=== PATIENT | female | born 1990 | race Caucasian/White ===

== ENCOUNTER 2018-11-15 00:22 | Emergency (ER) | payer OTHER ==
[2018-11-15] MEDS ORDERED: AZITHROMYCIN 250 MG TABLET PO ONE (00:31)
[2018-11-15] MEDS ORDERED: AZITHROMYCIN 250 MG TABLET ONE (00:34)
--- NOTE | 2018-11-15 00:37 | PDOC ---
History of Present Illness - General History Source: Patient Exam Limitations: No Limitations - History of Present Illness Initial Comments: 11/15/18 01:04 28 year old female with past medical history of asthma, cigarette smoker, presents to the ED with complaints of cold symptoms x5 days. Patient reports experiencing chills, sweats, subjective fever, and a productive cough with brown sputum. States her was sick with same symptoms. Denies any nausea , vomiting, diarrhea, urinary symptoms. <Mandi Arias - Last Filed: 11/15/18 01:04> <Deepa Villalpando - Last Filed: 11/15/18 05:38> - General Stated Complaint: COUGH,CHILLS Time Seen by Provider: 11/15/18 00:31 Past History <Mandi Arias - Last Filed: 11/15/18 01:04> - Past Medical History HTN: Yes Hypercholesterolemia: Yes - Suicide/Smoking/Psychosocial Hx Smoking Status: Yes Smoking History: Current every day smoker Have you smoked in the past 12 months: Yes Number of Cigarettes Smoked Daily: 12 'Breaking Loose' booklet given: 07/18/15 Hx Alcohol Use: No Drug/Substance Use Hx: No Substance Use Type: None <Deepa Villalpando - Last Filed: 11/15/18 05:38> - Past Medical History Allergies/Adverse Reactions: Allergies Allergy/AdvReac Type Severity Reaction Status Date / Time vancomycin Allergy Intermediate Hives Verified 11/15/18 00:38 Home Medications: Ambulatory Orders Acetaminophen [Tylenol] 650 mg PO PRN 11/15/18 Azithromycin [Zithromax -] 250 mg PO UTDICT #4 tab 11/15/18 Review of Systems - Review of Systems Able to Perform ROS?: Yes Comments:: 11/15/18 01:05 GENERAL/CONSTITUTIONAL: (+)Fever, chills. No weakness. HEAD, EYES, EARS, NOSE AND THROAT: No change in vision. No ear pain or discharge. No sore throat. CARDIOVASCULAR: No chest pain or shortness of breath. RESPIRATORY: (+) Productive cough. No wheezing, or hemoptysis. GASTROINTESTINAL: No nausea, vomiting, diarrhea or constipation. GENITOURINARY: No dysuria, frequency, or change in urination. MUSCULOSKELETAL: No joint or muscle swelling or pain. No neck or back pain. SKIN: No rash NEUROLOGIC: No headache, vertigo, loss of consciousness, or change in strength/ sensation. ENDOCRINE: No increased thirst. No abnormal weight change. HEMATOLOGIC/LYMPHATIC: No anemia, easy bleeding, or history of blood clots. ALLERGIC/IMMUNOLOGIC: No hives or skin allergy. All Other Systems: Reviewed and Negative <Mandi Arias - Last Filed: 11/15/18 01:04> *Physical Exam - Vital Signs Last Vital Signs Temp Pulse Resp BP Pulse Ox 97.6 F 89 18 142/79 99 11/15/18 00:38 11/15/18 00:38 11/15/18 00:38 11/15/18 00:38 11/15/18 00:38 - Physical Exam Comments: 11/15/18 01:08 GENERAL: Awake, alert, and fully oriented, in no acute distress. Afebrile EYES: PERRLA, EOMI, sclera anicteric, conjunctiva clear ENT: Auricles normal inspection, hearing grossly normal, nares patent, oropharynx clear without exudates. Moist mucosa NECK: Normal ROM, supple, no lymphadenopathy, JVD, or masses LUNGS: Breath sounds equal, clear to auscultation bilaterally. No wheezes, and no crackles HEART: Regular rate and rhythm, normal S1 and S2, no murmurs, rubs or gallops ABDOMEN: Soft, nontender, normoactive bowel sounds. No guarding, no rebound. No masses EXTREMITIES: Normal range of motion, no edema. No clubbing or cyanosis. No cords, erythema, or tenderness NEUROLOGICAL: Cranial nerves II through XII grossly intact. Normal speech, normal gait SKIN: Warm, Dry, normal turgor, no rashes or lesions noted. <Mandi Arias - Last Filed: 11/15/18 01:04> Moderate Sedation - Procedure Monitoring Vital Signs: Procedure Monitoring Vital Signs Temperature 97.6 F 11/15/18 00:38 Pulse Rate 89 11/15/18 00:38 Respiratory Rate 18 11/15/18 00:38 Blood Pressure 142/79 11/15/18 00:38 O2 Sat by Pulse Oximetry (%) 99 11/15/18 00:38 <Mandi Arias - Last Filed: 11/15/18 01:04> ED Treatment Course - Medications Given in the ED: ED Medications Discontinued Medications Generic Name Dose Route Start Last Admin Trade Name Freelsy PRN Reason Stop Dose Admin Azithromycin 500 mg 11/15/18 00:31 11/15/18 00:37 Zithromax - PO 11/15/18 00:32 500 mg ONCE ONE Administration <Mandi Arias - Last Filed: 11/15/18 01:04> - Medications Given in the ED: ED Medications Discontinued Medications Generic Name Dose Route Start Last Admin Trade Name Freq PRN Reason Stop Dose Admin Azithromycin 500 mg 11/15/18 00:31 11/15/18 00:37 Zithromax - PO 11/15/18 00:32 500 mg ONCE ONE Administration <Deepa Villalpando - Last Filed: 11/15/18 05:38> Medical Decision Making - Medical Decision Making 11/15/18 05:38 Pt caught a cold from her . She has been coughing x 10 days. She is a smoker. She will be treated with zpak for an atypical pneumonia. Follow with PMD. <Deepa Villalpando - Last Filed: 11/15/18 05:38> *DC/Admit/Observation/Transfer - Attestations Scribe Attestion: 11/15/18 01:08 Documentation prepared by Mandi Arias, acting as medical doctor for Deepa Villalpando MD. <Mandi Arias - Last Filed: 11/15/18 01:04> - Discharge Dispostion Decision to Admit order: No <Deepa Villalpando - Last Filed: 11/15/18 05:38> Diagnosis at time of Disposition: Upper respiratory infection, Atypical pneumonia - Discharge Dispostion Disposition: HOME Condition at time of disposition: Stable - Prescriptions Prescriptions: Azithromycin [Zithromax -] 250 mg PO UTDICT #4 tab - Patient Instructions Printed Discharge Instructions: DI for Atypical Pneumonia
[2018-11-15 00:40] VITALS: BP 142/79; PULSE 89; TEMP 97.6; BMI 36.6
== END 2018-11-15 01:22 | disposition home or self-care (01) ==
LOC: JER 00:22
DX: J18.9 Pneumonia, unspecified organism (principal)
CPT/HCPCS: 71046-TC-FY; 99281-25

== ENCOUNTER 2019-01-09 20:42 | Emergency (ER) | payer OTHER ==
[2019-01-09 20:45] VITALS: BMI 39.4
--- NOTE | 2019-01-09 21:31 | PDOC ---
Attending Attestation - HPI HPI: 01/10/19 00:14 The patient is a 28 year old female, with a significant PMH of tobacco abuse and COPD, who presents to the emergency department complaining of chest pain that began tonight at 8pm. The patient states the sharp stabbing pain is located to left anterior chest wall that radiates to the left neck. She also endorses associated symptoms of left arm weakness, cough and tingling sensation to the left leg. She mentions she has an appointment with [facility] 01/22/2019. The patient denies chest pain, shortness of breath, headache and dizziness.Denies fever, chills, nausea, vomit, diarrhea and constipation.Denies dysuria, frequency, urgency and hematuria. Allergies: vancomycin Past surgical history: None reported Social history: None reported PCP: None reported Documentation prepared by Fuentes Serna, acting as medical device sales representative for Katherine Reyes MD. - Physicial Exam PE: 01/10/19 00:23 GENERAL: Awake, alert, and fully oriented, in no acute distress HEAD: No signs of trauma LUNGS: Breath sounds equal, clear to auscultation bilaterally. No wheezes, and no crackles HEART: Regular rate and rhythm, normal S1 and S2, no murmurs, rubs or gallops ABDOMEN: Soft, nontender, normoactive bowel sounds. No guarding, no rebound. No masses EXTREMITIES: Normal range of motion, no edema. No clubbing or cyanosis. No cords, erythema, or tenderness NEUROLOGICAL: Cranial nerves II through XII grossly intact. Normal speech, normal gait SKIN: Warm, Dry, normal turgor, no rashes or lesions noted. Documentation prepared by Fuentes Serna, acting as medical device sales representative for Katherine Reyes MD. <Fuentes Serna - Last Filed: 01/10/19 00:14> - Resident Resident Name: Irving Bell - Medical Decision Making 01/10/19 20:23 Pt presents to the ED complaining of atypical CP. Pain is sharp, stabbing, non radiating. Normal exam. Patient is low risk for cardiac disease with heart score of 1. D dimer is negative. Tachycardia resolved. Patient reports that she was feeling extremely anxious on ED arrival and feels better now. Has appt for outpatient stress with Dr. Quinn on 01/22. Will discharge home with follow up with PMD and Dr. Quinn. 01/10/19 20:24 <Katherine Reyes - Last Filed: 01/10/19 20:25>
[2019-01-09] MEDS ORDERED: SODIUM CHLORIDE 1,000 ML IV STA (21:45)
[2019-01-09] MEDS ORDERED: ACETAMINOPHEN 1000 MG/100 ML VIAL (NON FORMULARY) IVPB ONE (21:45)
--- NOTE | 2019-01-09 21:53 | PDOC ---
History of Present Illness - General Chief Complaint: Chest Pain Stated Complaint: CHEST PAIN Time Seen by Provider: 01/09/19 21:31 History Source: Patient Exam Limitations: No Limitations - History of Present Illness Initial Comments: 01/09/19 21:47 Patient is 28F with history of COPD and tobacco abuse here today complaining of chest pain that onset at about 8pm tonight. Endorses associated cough for the past several weeks. Denies fevers, chills, nausea, vomiting. Endorses weakness in her left arm and tingling sensation in her left arm and left leg. Patient describes the pain as a crushing pain. Denies vision changes and facial droop. Denies headache. Denies leg swelling, recent travel, history of PE. Patient states that she is concerned because her 59 year old fiance was recently diagnosed with a MT. Past History - Past Medical History Allergies/Adverse Reactions: Allergies Allergy/AdvReac Type Severity Reaction Status Date / Time vancomycin Allergy Intermediate Hives Verified 01/09/19 20:45 COPD: Yes HTN: Yes Hypercholesterolemia: Yes - Immunization History Immunization Up to Date: Yes - Suicide/Smoking/Psychosocial Hx Smoking Status: Yes Smoking History: Current every day smoker Have you smoked in the past 12 months: Yes Number of Cigarettes Smoked Daily: 20 Information on smoking cessation initiated: Yes 'Breaking Loose' booklet given: 07/18/15 Hx Alcohol Use: No Drug/Substance Use Hx: No Substance Use Type: None Review of Systems - Review of Systems Able to Perform ROS?: Yes Comments:: 01/09/19 21:53 GENERAL/CONSTITUTIONAL: No fever or chills. No weakness. HEAD, EYES, EARS, NOSE AND THROAT: No change in vision. No sore throat. CARDIOVASCULAR: +chest pain +shortness of breath RESPIRATORY: No cough, wheezing, or hemoptysis. GASTROINTESTINAL: No nausea, vomiting, diarrhea or constipation. GENITOURINARY: No dysuria, frequency, or change in urination. MUSCULOSKELETAL: No joint or muscle swelling or pain. No neck or back pain. SKIN: No rash NEUROLOGIC: No headache, vertigo, loss of consciousness, or +tingling in l arm/ leg. ENDOCRINE: No increased thirst. No abnormal weight change HEMATOLOGIC/LYMPHATIC: No anemia, easy bleeding, or history of blood clots. ALLERGIC/IMMUNOLOGIC: No hives or skin allergy. *Physical Exam - Vital Signs Last Vital Signs Temp Pulse Resp BP Pulse Ox 97.8 F 104 H 18 154/86 98 01/09/19 20:43 01/09/19 20:43 01/09/19 20:43 01/09/19 20:43 01/09/19 20:43 - Physical Exam Comments: 01/09/19 21:54 GENERAL: Awake, alert, and fully oriented, in no acute distress HEAD: No signs of trauma, normocephalic, atraumatic EYES: PERRLA, EOMI, sclera anicteric, conjunctiva clear ENT: Auricles normal inspection, hearing grossly normal, nares patent, oropharynx clear without exudates. Moist mucosa NECK: Normal ROM, supple, no lymphadenopathy, JVD, or masses LUNGS: No distress, speaks full sentences, clear to auscultation bilaterally HEART: Regular rate and rhythm, normal S1 and S2, no murmurs, rubs or gallops, peripheral pulses normal and equal bilaterally. ABDOMEN: Soft, nontender, normoactive bowel sounds. No guarding, no rebound. No masses EXTREMITIES: Normal inspection, Normal range of motion, no edema. No clubbing or cyanosis. NEUROLOGICAL: Cranial nerves II through XII grossly intact. Normal speech, normal gait, no focal sensorimotor deficits SKIN: Warm, Dry, normal turgor, no rashes or lesions noted. Moderate Sedation - Procedure Monitoring Vital Signs: Procedure Monitoring Vital Signs Temperature 97.8 F 01/09/19 20:43 Pulse Rate 104 H 01/09/19 20:43 Respiratory Rate 18 01/09/19 20:43 Blood Pressure 154/86 01/09/19 20:43 O2 Sat by Pulse Oximetry (%) 98 01/09/19 20:43 ED Treatment Course - LABORATORY CBC & Chemistry Diagram: 01/09/19 22:15 01/09/19 22:15 - RADIOLOGY Radiology Studies Ordered: Category Date Time Status CHEST X-RAY PORTABLE* [RAD] Stat Radiology 01/09/19 21:39 Ordered Medical Decision Making - Medical Decision Making 01/09/19 21:54 Patient is 28F with history of copd and tobacco abuse here today with chest pain. Vitals notable for tachycardia. Believe patient is low risk for PE. Dissection considered, but pain not severe and patient has no fmh or risk factors for dissection. Will do cardiac workup with d-dimer. 01/10/19 00:07 CBC, CMP reassuring. Trop neg. D-dimer negative. CXR clear, no widened mediastinum. Patient has cardiology follow up already scheduled with Dr Quinn. Chest pain atypical, HEART score 1. EKG shows nsr, no st elevations/depressions. Normal axis. Normal intervals. No significant t wave abnormalities. *DC/Admit/Observation/Transfer Diagnosis at time of Disposition: Chest pain - Discharge Dispostion Disposition: HOME Condition at time of disposition: Good Decision to Admit order: No - Referrals Referrals: Candice De Oliveira MD [Primary Care Provider] - - Patient Instructions Printed Discharge Instructions: DI for Atypical Chest Pain Additional Instructions: Please follow up with your chip tuner as scheduled. Please return if you have any new, worsening or concerning symptoms, especially increasing pain, shortness of breath and fever. - Post Discharge Activity
[2019-01-09] MEDS ORDERED: ACETAMINOPHEN INJECTION 100 ML IVPB ONE (21:54)
[2019-01-09 22:29] LABS: BASO % 0.7 % (0-2.0); EOS % 0.9 % (0-4.5); HEMATOCRIT 41.8 % (32.4-45.2); HEMOGLOBIN 14.8 GM/dL (10.7-15.3); LYMPH % 21.3 % (8-40); MCH 30.4 pg (25.7-33.7); MCHC 35.3 g/dl (32.0-36.0); MEAN CELL VOLUME 86.1 fl (80-96); MEAN PLT VOLUME 8.5 fl (7.5-11.1); MONO % 4.9 % (3.8-10.2); NEUT % 72.2 % (42.8-82.8); PLATELET COUNT 241 K/MM3 (134-434); RBC 4.86 M/mm3 (3.60-5.2); RDW 13.3 % (11.6-15.6); WHITE BLOOD COUNT 11.5 K/mm3 (4.0-10.0)
[2019-01-09 22:49] LABS: INR 1.12 (0.83-1.09); PROTHROMBIN TIME (PATIENT) 13.2 SEC (9.7-13.0)
[2019-01-09 23:36] LABS: ALK PHOS 110 U/L (45-117); ANION GAP 8 MMOL/L (8-16); BILIRUBIN,DIRECT 0.1 mg/dL (0.0-0.2); BILIRUBIN,TOTAL 0.3 mg/dL (0.2-1); BLOOD UREA NITROGEN 11 mg/dL (7-18); CALCIUM 8.9 mg/dL (8.5-10.1); CHLORIDE 106 mmol/L (98-107); CO2 25 mmol/L (21-32); CREATININE 0.7 mg/dL (0.55-1.3); GLUCOSE,RANDOM 91 mg/dL (74-106); MAGNESIUM 2.2 mg/dL (1.8-2.4); POTASSIUM 3.6 mmol/L (3.5-5.1); SGOT/AST 20 U/L (15-37); SGPT/ALT 25 U/L (13-61); SODIUM 140 mmol/L (136-145); TOT PROT 8.1 g/dl (6.4-8.2)
[2019-01-10] MEDS ORDERED: KETOROLAC TROMETHAMINE 30 MG/1 ML VIAL IVPUSH ONE (00:03)
[2019-01-10] MEDS ORDERED: KETOROLAC TROMETHAMINE 30 MG/1 ML VIAL ONE (00:25)
[2019-01-10 00:43] VITALS: BP 113/90; PULSE 67; TEMP 97
--- NOTE | 2019-01-11 10:42 | EKG ---
Test Reason : Blood Pressure : / mmHG Vent. Rate : 093 BPM Atrial Rate : 093 BPM P-R Int : 136 ms QRS Dur : 086 ms QT Int : 376 ms P-R-T Axes : 027 002 017 degrees QTc Int : 467 ms NORMAL SINUS RHYTHM WITH SINUS ARRHYTHMIA NORMAL ECG WHEN COMPARED WITH ECG OF 27-NOV-2011 11:43, NO SIGNIFICANT CHANGE WAS FOUND Confirmed by LAMAR SAENZ MD ([id number]) on 01/11/2019 10:42:20 AM Referred By: Confirmed By:LAMAR SAENZ MD
== END 2019-01-10 00:44 | disposition home or self-care (01) ==
LOC: JER 20:42
PROC: 3E033NZ Introduction of Analgesics, Hypnotics, Sedatives into Peripheral Vein, Percutaneous Approach (ICD-10-PCS; principal; 2019-01-09)
PROC: 3E0333Z Introduction of Anti-inflammatory into Peripheral Vein, Percutaneous Approach (ICD-10-PCS; 2019-01-09)
DX: R07.89 Other chest pain (principal); J44.9 Chronic obstructive pulmonary disease, unspecified; F17.210 Nicotine dependence, cigarettes, uncomplicated
CPT/HCPCS: 36415; 71045-TC-FY; 80053; 82248; 82550; 83735; 84484; 84703; 85025; 85379; 85610; 93005; 93010; 99282-25; J0131; J7030

== ENCOUNTER 2019-11-22 17:50 | Emergency (ER) | payer OTHER ==
--- NOTE | 2019-11-22 17:57 | PDOC ---
Rapid Medical Evaluation Time Seen by Provider: 11/22/19 17:55 Medical Evaluation: Allergies Allergy/AdvReac Type Severity Reaction Status Date / Time vancomycin Allergy Intermediate Hives Verified 11/22/19 17:55 11/22/19 17:56 I performed a brief in-person evaluation of this patient. 29-year-old female with 3 days of right flank pain. Reports chills at night. Nausea without vomiting. Pertinent physical exam findings: Right flank tenderness, tender over bladder Afebrile I have ordered the following: UA, culture, urine Patient to proceed to the ED for further evaluation. Discharge Disposition - Diagnosis Flank pain - Referrals - Patient Instructions - Post Discharge Activity
[2019-11-22 17:58] VITALS: BMI 39.4
[2019-11-22 18:44] LABS: EPI CELLS 1.8 /HPF (0-5/HPF); HYALINE CASTS 6 /lpf (0-8); URINE APPEARANCE CLEAR; URINE BACTERIA 9.1 /hpf (NEGATIVE); URINE BILIRUBIN NEGATIVE (NEGATIVE); URINE COLOR YELLOW; URINE GLUCOSE (UA) NEGATIVE (NEGATIVE); URINE KETONE NEGATIVE (NEGATIVE); URINE LEUK ESTERASE NEGATIVE (NEGATIVE); URINE NITRITE NEGATIVE (NEGATIVE); URINE PROTEIN NEGATIVE (NEGATIVE); URINE RBC 5 /hpf (0-4); URINE WBC 5 /hpf (0-5)
--- NOTE | 2019-11-22 19:26 | PDOC ---
History of Present Illness - General Chief Complaint: Pain, Acute Stated Complaint: R/SIDE/PAIN/ABD/PAIN/NAUSEA Time Seen by Provider: 11/22/19 17:55 History Source: Patient - History of Present Illness Initial Comments: 11/22/19 19:32 29 year old female old c/o RUQ pain radiating to radiating to the right flank. + chills. + urinary frequency. denies dysuria, denies flank pain now. patient reports that andrew symptoms has been going on for 3 weeks worsening overtime. pain is worse after eating. NO PMHX \ NO PSHX LMP: 11/2019 Past History - Past Medical History Allergies/Adverse Reactions: Allergies Allergy/AdvReac Type Severity Reaction Status Date / Time vancomycin Allergy Intermediate Hives Verified 11/22/19 17:55 Home Medications: Ambulatory Orders NK [No Known Home Medication] 11/22/19 COPD: Yes HTN: Yes Hypercholesterolemia: Yes - Immunization History Immunization Up to Date: Yes - Psycho Social/Smoking Cessation Hx Smoking Status: Yes Smoking History: Current every day smoker Have you smoked in the past 12 months: Yes Number of Cigarettes Smoked Daily: 20 Information on smoking cessation initiated: No 'Breaking Loose' booklet given: 07/18/15 Hx Alcohol Use: No Drug/Substance Use Hx: No Substance Use Type: None Review of Systems - Review of Systems Able to Perform ROS?: Yes Is the patient limited Polish proficient: No Constitutional: Yes: Chills. No: Symptoms Reported, See HPI, Diaphoresis, Fever , Loss of Appetite, Malaise, Night Sweats, Weakness, Weight Stable, Unintentional Wgt. Loss, Unexplained wgt Loss, Other ABD/GI: Yes: Nausea, Abdominal cramping Musculoskeletal: Yes: Back Pain *Physical Exam - Vital Signs Last Vital Signs Temp Pulse Resp BP Pulse Ox 97.9 F 95 H 18 135/76 100 11/22/19 17:55 11/22/19 17:55 11/22/19 17:55 11/22/19 17:55 11/22/19 17:55 - Physical Exam General Appearance: Yes: Appropriately Dressed Respiratory/Chest: positive: Lungs Clear, Normal Breath Sounds Cardiovascular: positive: Regular Rhythm, Regular Rate Gastrointestinal/Abdominal: positive: Normal Bowel Sounds, Tender (RUQ), Soft Musculoskeletal: negative: CVA Tenderness Extremity: positive: Normal Capillary Refill, Normal Inspection, Normal Range of Motion Integumentary: positive: Normal Color, Dry, Warm Neurologic: positive: Fully Oriented, Alert, Normal Mood/Affect ED Treatment Course - LABORATORY CBC & Chemistry Diagram: 11/22/19 19:54 11/22/19 19:54 - ADDITIONAL ORDERS Additional order review: Laboratory Results 11/22/19 11/22/19 18:04 18:04 Urine Color Yellow Urine Appearance Clear Urine pH 6.0 Ur Specific [place] 1.022 Urine Protein Negative Urine Glucose (UA) Negative Urine Ketones Negative Urine Blood 1+ H Urine Nitrite Negative Urine Bilirubin Negative Urine Urobilinogen 1.0 Ur Leukocyte Esterase Negative Urine WBC (Auto) 5 Urine RBC (Auto) 5 Urine Casts (Auto) 6 U Epithel Cells (Auto) 1.8 Urine Bacteria (Auto) 9.1 Urine HCG, Qual Negative ED Progress Note - Progress Note Progress Note: 11/22/19 19:35 A: Upper abdominal pain P: CBC CMP Lipase Ultrasouns UA Urine pregn Discharge - Discharge Information Problems reviewed: Yes Clinical Impression/Diagnosis: Upper abdominal pain Cholelithiasis Qualifiers: Cholelithiasis location: gallbladder Cholecystitis presence: without cholecystitis Biliary obstruction: without biliary obstruction Qualified Code(s) : K80.20 - Calculus of gallbladder without cholecystitis without obstruction Disposition: HOME - Follow up/Referral Referrals: Juan Case MD [Staff Physician] - Call tomorrow [place] [Staff Physician] - Call tomorrow Cyrus Jackson MD [Staff Physician] - Call tomorrow - Patient Discharge Instructions Patient Printed Discharge Instructions: Gallstones Additional Instructions: start a low fat diet. it is very important that you follow up with a surgeon/ GI doctor as soon as impossible. return to the ER for any worsening symptoms - Post Discharge Activity
--- NOTE | 2019-11-22 19:34 | PDOC ---
*Physical Exam - Vital Signs Last Vital Signs Temp Pulse Resp BP Pulse Ox 97.9 F 95 H 18 135/76 100 11/22/19 17:55 11/22/19 17:55 11/22/19 17:55 11/22/19 17:55 11/22/19 17:55 ED Treatment Course - LABORATORY CBC & Chemistry Diagram: 11/22/19 19:54 11/22/19 19:54 - ADDITIONAL ORDERS Additional order review: Laboratory Results 11/22/19 11/22/19 18:04 18:04 Urine Color Yellow Urine Appearance Clear Urine pH 6.0 Ur Specific [place] 1.022 Urine Protein Negative Urine Glucose (UA) Negative Urine Ketones Negative Urine Blood 1+ H Urine Nitrite Negative Urine Bilirubin Negative Urine Urobilinogen 1.0 Ur Leukocyte Esterase Negative Urine WBC (Auto) 5 Urine RBC (Auto) 5 Urine Casts (Auto) 6 U Epithel Cells (Auto) 1.8 Urine Bacteria (Auto) 9.1 Urine HCG, Qual Negative Medical Decision Making - Medical Decision Making 11/22/19 19:33 Patient seen by the advanced practice provider under my direct supervision. Ancillary testing reviewed as necessary. I agree with plan as outlined by the advanced practice provider. Discharge - Discharge Information Problems reviewed: Yes Clinical Impression/Diagnosis: Upper abdominal pain Cholelithiasis Qualifiers: Cholelithiasis location: gallbladder Cholecystitis presence: without cholecystitis Biliary obstruction: without biliary obstruction Qualified Code(s) : K80.20 - Calculus of gallbladder without cholecystitis without obstruction Disposition: HOME - Follow up/Referral Referrals: Juan Case MD [Staff Physician] - Call tomorrow Cyrus Jackson MD [Staff Physician] - Call tomorrow [place] [Staff Physician] - Call tomorrow - Patient Discharge Instructions Patient Printed Discharge Instructions: Gallstones Additional Instructions: start a low fat diet. it is very important that you follow up with a surgeon/ GI doctor as soon as impossible. return to the ER for any worsening symptoms - Post Discharge Activity
[2019-11-22 21:02] LABS: BASO % 0.4 % (0-2.0); EOS % 1.5 % (0-4.5); HEMATOCRIT 41.4 % (32.4-45.2); HEMOGLOBIN 14.3 GM/dL (10.7-15.3); LYMPH % 20.4 % (8-40); MCH 28.9 pg (25.7-33.7); MCHC 34.5 g/dl (32.0-36.0); MEAN CELL VOLUME 83.8 fl (80-96); MEAN PLT VOLUME 8.9 fl (7.5-11.1); MONO % 5.2 % (3.8-10.2); NEUT % 72.5 % (42.8-82.8); PLATELET COUNT 295 K/MM3 (134-434); RBC 4.95 M/mm3 (3.60-5.2); RDW 13.8 % (11.6-15.6); WHITE BLOOD COUNT 10.9 K/mm3 (4.0-10.0)
[2019-11-22 21:31] LABS: ALBUMIN 3.9 g/dl (3.4-5.0); BILIRUBIN,TOTAL 0.3 mg/dL (0.2-1); BLOOD UREA NITROGEN 8.4 mg/dL (7-18); CALCIUM 8.7 mg/dL (8.5-10.1); CREATININE 0.7 mg/dL (0.55-1.3); POTASSIUM 4.1 mmol/L (3.5-5.1); TOT PROT 7.8 g/dl (6.4-8.2)
[2019-11-22 22:04] VITALS: BP 124/76; PULSE 82; TEMP 97.5
== END 2019-11-22 22:04 | disposition home or self-care (01) ==
LOC: JER 17:50
DX: K80.20 Calculus of gallbladder without cholecystitis without obstruction (principal); I10 Essential (primary) hypertension; E78.00 Pure hypercholesterolemia, unspecified; J44.9 Chronic obstructive pulmonary disease, unspecified; F17.210 Nicotine dependence, cigarettes, uncomplicated; Z88.1 Allergy status to other antibiotic agents
CPT/HCPCS: 36415; 76705-TC; 80053; 81003; 83690; 84703; 85025; 87086; 99283-25

== ENCOUNTER 2019-11-26 09:51 | Day surgery (SDC) | payer OTHER ==
[2019-11-25 09:07] VITALS: BMI 39.4
--- NOTE | 2019-11-26 12:03 | HP ---
History & Physical Update - History History: No Change - Physical Physical: No Change - Assessment Assessment: No Change - Plan Plan: No Change (for lap alondra possible open; r/b/t/a's d/w the patient and informed consent obtained.)
[2019-11-26] MEDS ORDERED: PROPOFOL 20 ML ONE ×2 (12:45)
[2019-11-26] MEDS ORDERED: MIDAZOLAM HCL 2 MG/2 ML SINGLE DOSE VIAL ONE (12:45)
[2019-11-26] MEDS ORDERED: SUCCINYLCHOLINE CHLORIDE 200 MG/10 ML SYRINGE ONE (12:45)
[2019-11-26] MEDS ORDERED: fentaNYL CITRATE 250 MCG/5 ML VIAL ONE (12:45)
[2019-11-26] MEDS ORDERED: EPHEDRINE SULFATE/0.9% NACL/PF 50 MG/10 ML SYRINGE NR ONE (12:46)
[2019-11-26] MEDS ORDERED: LIDOCAINE HCL/PF 2% SDV 5ML VIAL ONE (12:46)
[2019-11-26] MEDS ORDERED: ceFAZolin SODIUM 1 GM VIAL IVPB ONE (13:15)
[2019-11-26] MEDS ORDERED: BUPIVACAINE HCL/PF 0.5% (5MG/ML) 10 ML VIAL IJ ONE ×2 (14:04)
[2019-11-26] MEDS ORDERED: NEOSTIGMINE METHYLSULFATE 0.5 MG/ML - 10 ML MDV ONE (14:18)
[2019-11-26] MEDS ORDERED: GLYCOPYRROLATE 0.2 MG/1 ML VIAL ONE ×2 (14:19)
[2019-11-26] MEDS ORDERED: KETOROLAC TROMETHAMINE 30 MG/1 ML VIAL ONE (14:19)
[2019-11-26] MEDS ORDERED: DEXAMETHASONE SOD PHOSPHATE 4 MG/1 ML VIAL ONE (14:22)
--- NOTE | 2019-11-26 14:53 | OP ---
Operative Note - Note: Operative Date: 11/26/19 Pre-Operative Diagnosis: gallstones Operation: laparscopic cholecyctectomy Surgeon: Juan Case [employer] Security Chief: Jyoti Doe Anesthesiologist/RETAIL WAREHOUSE ASSOCIATE: Devora Miller Anesthesia: General Estimated Blood Loss (mls): 20 Fluid Volume Replaced (mls): 1,000 Operative Report Dictated: Yes
--- NOTE | 2019-11-26 14:55 | SURG ---
Surgery Menu Planner Note Menu Planner: Jyoti Doe PA-C Date of Service: 11/26/19 Diagnosis: gallstones Procedure: laparscopic cholecyctectomy I was present for the entirety of the operative procedure. For further detail, please refer to operative report. Visit type - Case Type Case Type: Scheduled - Emergency Emergency Visit: No - New patient This patient is new to me today: Yes Date on this admission: 11/26/19
[2019-11-26] MEDS ORDERED: ONDANSETRON 4 MG/2 ML VIAL ONE (14:58)
[2019-11-26] MEDS ORDERED: ONDANSETRON 4 MG/2 ML VIAL IVPUSH PRN (15:00)
[2019-11-26] MEDS ORDERED: oxyCODONE HCL 5 MG TABLET PO PRN ×2 (15:00)
[2019-11-26] MEDS ORDERED: LACTATED RINGERS SOLUTION 1,000 ML IV SCH (15:00)
[2019-11-26 17:01] VITALS: TEMP 98
[2019-11-26 17:51] VITALS: BP 123/85; PULSE 73
--- NOTE | 2019-11-30 13:40 | OP ---
DATE OF OPERATION: 11/26/2019 PREOPERATIVE DIAGNOSIS: Chronic cholecystitis and cholelithiasis. POSTOPERATIVE DIAGNOSIS: Chronic cholecystitis and cholelithiasis. PROCEDURE: Laparoscopic cholecystectomy. SURGEON: Juan Case MD AGRICULTURAL SERVICES DIRECTOR: ALBAN Thurston ANESTHESIA: General. OPERATIVE FINDINGS: There was chronic cholecystitis and cholelithiasis. The rest of the findings were unremarkable. DESCRIPTION OF PROCEDURE: The patient was placed on the operating room table in supine position. After the induction of general anesthesia, the patient's abdomen was prepped with ChloraPrep and draped in sterile fashion. Time-out was taken and then pneumoperitoneum established above the umbilicus using a Veress needle. Once 15 mm of intra-abdominal pressure was obtained, a 5-mm port was placed at the umbilicus. Additional lateral 5-mm ports and a subxiphoid 12-mm port were placed and laparoscopy carried out, and the previously noted findings were observed. The gallbladder was placed on cephalad and lateral traction, and dissection was begun at the neck of the gallbladder where the peritoneum was opened medially and laterally using blunt and sharp dissection and electrocautery. Dissection continued in the triangle of Calot where the cystic duct was identified coursing from the neck of the gallbladder distally to the common bile duct. It was dissected proximally and distally for length. Similarly, the artery was similarly identified and dissected. A critical view of safety was taken, and then the cystic duct divided proximally and distally using Endo Kathe after it was clipped twice proximally and distally with large hemoclips. The artery was similarly clipped and divided. Hemostasis was checked for and noted to be good and then the gallbladder was removed from the liver bed in a retrograde fashion using electrocautery. Prior to removal from the edge of the liver, hemostasis was again verified and then the gallbladder removed from the edge of the liver, placed in an EndoCatch, and brought out through the subxiphoid port. Pneumoperitoneum was reestablished, hemostasis verified again, and then the 5-mm lateral and subxiphoid ports were removed under laparoscopic vision without evidence of bleeding from the port sites. The umbilical port was removed and the pneumoperitoneum evacuated. All port sites were infiltrated with 0.5% Marcaine and the skin edges closed with 4-0 Biosyn in a subcuticular and continuous fashion. Steri-Strips and Band-Aid dressings were placed and the procedure terminated at this point and the patient aroused from general anesthesia and transferred to the post anesthesia care unit in stable condition awake and alert. ESTIMATED BLOOD LOSS: 20 mL. REPLACEMENTS: Crystalloid. DRAINS: None. SPECIMENS: Gallbladder and contents to Pathology. I, Juan Dumont, was physically present in the operating room from the time the patient was placed on the operating room table until she was transferred to the post anesthesia care unit in [employer]. MD GREGORIO Renia/[id number] MTDD
--- NOTE | 2019-12-01 19:35 | PATH ---
Surgical Pathology Report Patient Name: DEION HUGHES [facility]. Rec. #: [id number] /Age/Gender: 1990 (Age: 29) / F Account: [id number] Location: [facility] SURGICAL Taken: 11/26/2019 Received: 11/29/2019 Reported: 12/01/2019 Physicians: Juan Case MD Specimen(s) Received GALLBLADDER Clinical History Cholelithiasis Final Diagnosis GALLBLADDER, CHOLECYSTECTOMY: MILD ACUTE SUPERIMPOSED ON CHRONIC CHOLECYSTITIS. CHOLELITHIASIS. Electronically Signed Rosa Elena Fernandez M.D. Gross Description Received in formalin, labeled "gallbladder," is a 6.5 x 2.3 x 2.3 cm. gallbladder with a 0.2 cm. in length portion of cystic duct attached. The outer surface varies from smooth to shaggy. Focal defect measuring 0.5 cm in greatest dimension noted. The lumen contains with multiple stones, the largest measures 1.6 cm in greatest dimension. The mucosa is focally superficial eroded. The wall of the gallbladder measures 0.3cm. in thickness. [employer] sections are submitted in one cassette. KWS/11/30/2019 mereki/11/30/2019
== END 2019-11-26 17:52 | disposition home or self-care (01) ==
LOC: JASU-SURG 09:51
PROVIDERS: ATTEND Surgery
PROC: 0FT44ZZ Resection of Gallbladder, Percutaneous Endoscopic Approach (ICD-10-PCS; principal; 2019-11-26 12:00)
DX: K80.10 Calculus of gallbladder with chronic cholecystitis without obstruction (principal)
CPT/HCPCS: 84703; 88304-TC; 94760

== ENCOUNTER 2020-01-12 15:22 | Emergency (ER) | payer OTHER ==
--- NOTE | 2020-01-12 15:42 | PDOC ---
Rapid Medical Evaluation Time Seen by Provider: 01/12/20 15:40 Medical Evaluation: Allergies Allergy/AdvReac Type Severity Reaction Status Date / Time vancomycin Allergy Intermediate Hives Verified 01/12/20 15:40 01/12/20 15:40 HPI: Feeling ill x3 days with night sweats and cough PE: No distress or gross deficits Orders: CXR 01/12/20 15:41 Discharge Disposition - Diagnosis Upper respiratory infection - Referrals - Patient Instructions - Post Discharge Activity
[2020-01-12 15:44] VITALS: BP 126/65; PULSE 64; TEMP 98.1; BMI 30.9
--- NOTE | 2020-01-12 17:46 | PDOC ---
History of Present Illness - General Chief Complaint: Cold Symptoms Stated Complaint: COLD SYMPTOMS Time Seen by Provider: 01/12/20 15:40 History Source: Patient - History of Present Illness Initial Comments: 01/12/20 17:41 Chief complaint: Chills and cough Patient is a 29-year-old female with a history of asthma, COPD, hypertension and elevated cholesterol who states she has had 2 days of chills, fever and cough. Patient has no shortness of breath. Patient does feel like she has been wheezing on and off. Patient is not in any respiratory distress. Patient has never had to take steroids. Patient does not look acutely ill GENERAL/CONSTITUTIONAL: No fever, weakness. dizziness HEAD, EYES, EARS, NOSE AND THROAT: No change in vision. No ear pain or discharge. No sore throat. CARDIOVASCULAR: No chest pain RESPIRATORY: No shortness of breath or cough GASTROINTESTINAL: No pain, nausea, vomiting, diarrhea or constipation GENITOURINARY: No dysuria MUSCULOSKELETAL: No neck or back pain SKIN: No rash NEUROLOGIC: No headache, vertigo, loss of consciousness, or loss of sensation. GENERAL: The patient is awake, alert, and fully oriented, in no acute distress. HEAD: Normal with no signs of trauma. EYES: Pupils equal, round and reactive to light, sclera anicteric, conjunctiva clear. ENT: pharynx: no erythema, no exudate, uvula midline NECK: supple CHEST: clear, nontender, rr ABD: soft, nontender BACK: no tenderness or signs of injury EXTREMITIES: Normal range of motion, no edema. NEUROLOGICAL: Normal speech, normal gait. SKIN: Warm, Dry Past History - Past Medical History Allergies/Adverse Reactions: Allergies Allergy/AdvReac Type Severity Reaction Status Date / Time vancomycin Allergy Intermediate Hives Verified 01/12/20 15:40 Home Medications: Ambulatory Orders Azithromycin [Zithromax 250mg Tablets -] 250 mg PO UTDICT #6 tab 01/12/20 Oseltamivir Phosphate [Tamiflu] 75 mg PO DAILY #10 capsule 01/12/20 Anemia: No Asthma: Yes Cancer: No Cardiac Disorders: No CVA: No COPD: Yes CHF: No Dementia: No Diabetes: No GI Disorders: No Disorders: No HTN: Yes Hypercholesterolemia: Yes Liver Disease: No Seizures: No Thyroid Disease: No - Immunization History Immunization Up to Date: Yes - Psycho Social/Smoking Cessation Hx Smoking Status: Yes Smoking History: Current every day smoker Have you smoked in the past 12 months: Yes Number of Cigarettes Smoked Daily: 20 Information on smoking cessation initiated: Yes 'Breaking Loose' booklet given: 11/25/19 Hx Alcohol Use: No Drug/Substance Use Hx: No Substance Use Type: None *Physical Exam - Vital Signs Last Vital Signs Temp Pulse Resp BP Pulse Ox 98.1 F 64 18 126/65 98 01/12/20 15:42 01/12/20 15:42 01/12/20 15:42 01/12/20 15:42 01/12/20 15:42 Medical Decision Making - Medical Decision Making 01/12/20 17:42 29-year-old female with history of COPD, asthma, hypertension and hyperlipidemia with cough and fever for 2 days. Patient had chest x-ray ordered from triage. It shows no pneumonia. In no acute issue. Patient is not short of breath, is not wheezing and not hypoxic. Patient has inhaler at home. Patient will get Zithromax given the history, offered Tamiflu which she said she will take. Patient has not required steroids in the past. Discussed issues, findings, results, applicable medications and treatments and follow-up. All these were understood and all questions were answered Discharge - Discharge Information Problems reviewed: Yes Clinical Impression/Diagnosis: Upper respiratory infection Qualifiers: URI type: unspecified URI Qualified Code(s): J06.9 - Acute upper respiratory infection, unspecified Condition: Stable Disposition: HOME - Admission No - Additional Discharge Information Prescriptions: Oseltamivir Phosphate [Tamiflu] 75 mg PO DAILY #10 capsule Azithromycin [Zithromax 250mg Tablets -] 250 mg PO UTDICT #6 tab - Follow up/Referral Referrals: Candice De Oliveira MD [Primary Care Provider] - - Patient Discharge Instructions Patient Printed Discharge Instructions: DI for Viral Upper Respiratory Infection -- Adult Additional Instructions: Drink 2-3 L of water daily Take the Tamiflu until finished, take Z-Jt as directed Use your inhaler 2 puffs every 4 hours as needed for wheezing Take Tylenol 650 mg every 4 hours or Motrin 600 mg every 6 hours for fever and pain Return to the nearest ER if short of breath, unable to swallow or feeling sicker Followup with your doctor in one to 2 days - Post Discharge Activity Work/Back to School Note: Back to Work
== END 2020-01-12 17:56 | disposition home or self-care (01) ==
LOC: JERFT 15:22
DX: J06.9 Acute upper respiratory infection, unspecified (principal); Z88.8 Allergy status to other drugs, medicaments and biological substances; J44.9 Chronic obstructive pulmonary disease, unspecified; I10 Essential (primary) hypertension; E78.5 Hyperlipidemia, unspecified
CPT/HCPCS: 71046-TC-FY; 99283-25

== ENCOUNTER 2020-05-05 01:02 | Emergency (ER) | payer BC, OTHER ==
--- NOTE | 2020-05-05 01:36 | PDOC ---
History of Present Illness - General Chief Complaint: Chest Pain Stated Complaint: CHEST PAIN/NUMBNESS Time Seen by Provider: 05/05/20 01:26 - History of Present Illness Initial Comments: Karina Anne is a 29 y/o female with PMH significant for COPD and asthma. Reports left sided sharp chest pain that started two days ago after finding out that her father of an MD. Describes the pain as sharp, non pleuritic. Reports LUE numbness. No radiation to the neck or back. Reports mild headache without dizziness. No shortness of breath. No abd pain. No nausea/vomiting. No cough. No fever/chills. No back pain. Reports that she had a prior episode of anxiety related chest pain several years ago. FamHx: father of MD at 59, mother has angina SocHx: 20 pack year smoking history, currently vaping Past History - Medical History Allergies/Adverse Reactions: Allergies Allergy/AdvReac Type Severity Reaction Status Date / Time vancomycin Allergy Intermediate Hives Verified 05/05/20 01:42 Home Medications: Ambulatory Orders Azithromycin [Zithromax 250mg Tablets -] 250 mg PO UTDICT #6 tab 01/12/20 Oseltamivir Phosphate [Tamiflu] 75 mg PO DAILY #10 capsule 01/12/20 Anemia: No Asthma: Yes Cancer: No Cardiac Disorders: No CVA: No COPD: Yes CHF: No Dementia: No Diabetes: No GI Disorders: No Disorders: No HTN: Yes Hypercholesterolemia: Yes Liver Disease: No Seizures: No Thyroid Disease: No - Immunization History Immunization Up to Date: Yes - Psycho-Social/Smoking History Smoking Status: Yes Smoking History: Current every day smoker Have you smoked in the past 12 months: Yes Number of Cigarettes Smoked Daily: 20 'Breaking Loose' booklet given: 11/25/19 Cardiac Specific PMH - Complaint Specific PMHX Pacemaker: No Review of Systems - Review of Systems Comments:: GENERAL/CONSTITUTIONAL: No fever or chills. No weakness._ HEAD, EYES, EARS, NOSE AND THROAT: No change in vision. No change in hearing. No sore throat._ CARDIOVASCULAR: Reports chest pain. shortness of breath_ RESPIRATORY: Denies cough, hemoptysis_ GASTROINTESTINAL: No nausea, vomiting, diarrhea or constipation._ GENITOURINARY: No dysuria, frequency, or change in urination._ MUSCULOSKELETAL: No joint or muscle swelling or pain. No neck or back pain._ SKIN: No rash_ NEUROLOGIC: No headache, vertigo, loss of consciousness, or change in strength/sensation._ ENDOCRINE: No increased thirst. No abnormal weight change_ HEMATOLOGIC/LYMPHATIC: No anemia, easy bleeding, or history of blood clots._ ALLERGIC/IMMUNOLOGIC: No hives or skin allergy._ *Physical Exam - Vital Signs Last Vital Signs Temp Pulse Resp BP Pulse Ox 97.8 F 80 18 119/84 96 05/05/20 01:02 05/05/20 03:45 05/05/20 03:45 05/05/20 03:45 05/05/20 03:45 - Physical Exam GENERAL: Awake, alert, and oriented to person/place/time, in no acute distress_ HEAD: No signs of trauma, normocephalic, atraumatic _ EYES: PERRLA, EOMI, sclera anicteric, conjunctiva clear_ ENT: Hearing grossly normal, nares patent, oropharynx clear without exudates. No uvular deviation. Moist mucosa_ NECK: Normal ROM, supple, no lymphadenopathy, JVD, or masses_ LUNGS: No distress, speaks in full sentences, clear to auscultation bilaterally _ HEART: Regular rate and rhythm, normal S1 and S2, no murmurs appreciated, peripheral pulses normal and equal bilaterally._ CHEST: No bruising or obvious chest trauma. ABDOMEN: Soft, nontender, normoactive bowel sounds. No guarding, no rebound. No masses_ EXTREMITIES: Normal inspection, Normal range of motion, no edema. No clubbing or cyanosis_ NEUROLOGICAL: Cranial nerves II through XII grossly intact. Normal speech, normal gait, no focal sensorimotor deficits _ SKIN: Warm, Dry, normal turgor, no rashes or lesions noted_ ED Treatment Course - LABORATORY CBC & Chemistry Diagram: 05/05/20 01:31 05/05/20 01:31 - ADDITIONAL ORDERS Additional order review: 05/05/20 01:31 RBC 5.06 MCV 83.3 MCHC 34.2 RDW 13.8 MPV 8.5 Neutrophils % 64.6 Lymphocytes % 26.6 D Monocytes % 6.8 Eosinophils % 1.4 Basophils % 0.6 - RADIOLOGY Radiology Studies Ordered: Category Date Time Status CHEST X-RAY PORTABLE* [RAD] Stat Radiology 05/05/20 01:27 Completed - Medications Given in the ED: ED Medications Discontinued Medications Generic Name Dose Route Start Last Admin Trade Name Jayson PRN Reason Stop Dose Admin Acetaminophen 1,000 mg 05/05/20 02:25 05/05/20 03:24 Ofirmev Injection - IVPB 05/05/20 02:26 1,000 mg ONCE ONE Administration Alprazolam 0.5 mg 05/05/20 02:05 05/05/20 03:05 Xanax - PO 05/05/20 02:06 0.5 mg ONCE ONE Administration Medical Decision Making - Medical Decision Making 05/05/20 01:35 29F hx of COPD and asthma presenting with left sided chest pain. Father of MD a few days ago. DDx includes anxiety vs ACS vs MSK chest pain. -cbc, cmp -ekg, trop, cxr -fluids, tylenol -xanax EKG shows 70 bpm, NSR, nml axis, no ST elevations, nml intervals. 05/05/20 03:01 Pt reports that she had a stress test with Dr. Lundberg (cardiology) last year which was normal. 05/05/20 03:30 Pt reassessed. Reports feeling much better after nml EKG and lab work. States that she has been worried about heart problems after finding her father from an MD. Plan to d/c home with PCP and cardiology f/u. All questions answered. Return precautions given. Pt verbalized understanding and agreement with plan. Labs reviewed. Laboratory Last Values WBC 12.7 K/mm3 (4.0-10.0) H 05/05/20 01:31 RBC 5.06 M/mm3 (3.60-5.2) 05/05/20 01:31 Hgb 14.4 GM/dL (10.7-15.3) 05/05/20 01:31 Hct 42.1 % (32.4-45.2) 05/05/20 01:31 MCV 83.3 fl (80-96) 05/05/20 01:31 MCH 28.5 pg (25.7-33.7) 05/05/20 01:31 MCHC 34.2 g/dl (32.0-36.0) 05/05/20 01:31 RDW 13.8 % (11.6-15.6) 05/05/20 01:31 Plt Count 289 K/MM3 (134-434) 05/05/20 01:31 MPV 8.5 fl (7.5-11.1) 05/05/20 01:31 Absolute Neuts (auto) 8.2 K/mm3 (1.5-8.0) H 05/05/20 01:31 Neutrophils % 64.6 % (42.8-82.8) 05/05/20 01:31 Lymphocytes % 26.6 % (8-40) D 05/05/20 01:31 Monocytes % 6.8 % (3.8-10.2) 05/05/20 01:31 Eosinophils % 1.4 % (0-4.5) 05/05/20 01: Basophils % 0.6 % (0-2.0) 05/05/20 01:31 Nucleated RBC % 0 % (0-0) 05/05/20 01:31 PT with INR 12.50 SEC (9.7-13.0) 05/05/20 01:31 INR 1.06 (0.83-1.09) 05/05/20 01:31 PTT (Actin FS) 27.7 SECONDS (25.2-36.5) 05/05/20 01:31 Sodium 140 mmol/L (136-145) 05/05/20 01:31 Potassium 3.7 mmol/L (3.5-5.1) 05/05/20 01:31 Chloride 105 mmol/L (98-107) 05/05/20 01:31 Carbon Dioxide 26 mmol/L (21-32) 05/05/20 01:31 Anion Gap 9 MMOL/L (8-16) 05/05/20 01:31 BUN 9.2 mg/dL (7-18) 05/05/20 01:31 Creatinine 0.8 mg/dL (0.55-1.3) 05/05/20 01:31 Est GFR (CKD-EPI)AfAm 113.86 05/05/20 01:31 Est GFR (CKD-EPI)NonAf 98.24 05/05/20 01:31 Random Glucose 98 mg/dL (74-106) 05/05/20 01:31 Calcium 9.0 mg/dL (8.5-10.1) 05/05/20 01:31 Total Bilirubin 0.5 mg/dL (0.2-1) 05/05/20 01:31 AST 19 U/L (15-37) 05/05/20 01:31 ALT 32 U/L (13-61) 05/05/20 01:31 Alkaline Phosphatase 94 U/L (45-117) 05/05/20 01:31 Creatine Kinase 102 U/L (26-192) 05/05/20 01:31 Troponin I < 0.02 ng/ml (0.00-0.05) 05/05/20 01:31 Total Protein 7.8 g/dl (6.4-8.2) 05/05/20 01:31 Albumin 3.8 g/dl (3.4-5.0) 05/05/20 01:31 Discharge - Discharge Information Problems reviewed: Yes Clinical Impression/Diagnosis: Anxiety, Chest pain due to psychological stress Condition: Stable Disposition: HOME - Admission No - Follow up/Referral Referrals: [facility] [place] [facility] [place] [Provider Group] Eliel Quinn MD [Staff Physician] - - Patient Discharge Instructions Patient Printed Discharge Instructions: DI for Chest Pain Additional Instructions: Please make a follow up appointment with a primary care doctor (referral provided here) to discuss strategies for managing anxiety. Please make a follow up appt with your sieve grader tender (Dr. Quinn). If you experience any new, worsening, or concerning symptoms, including worsening chest pain, shortness of breath, headache, or any other concerns, please return to the emergency department. - Post Discharge Activity Work/Back to School Note: Back to Work
--- NOTE | 2020-05-05 01:40 | PDOC ---
Documentation entered by Ese Post SCRIBE, acting as scribe for Dae Meadows MD. Dae Meadows MD: This documentation has been prepared by the jose luis, Ese Post SCRIBE, under my direction and personally reviewed by me in its entirety. I confirm that the documentation accurately reflects all work, treatment, procedures, and medical decision making performed by me. Attending Attestation - Resident Resident Name: IglesiasMustapha - ED Attending Attestation I have performed the following: I have examined & evaluated the patient, The case was reviewed & discussed with the resident, I agree w/resident's findings & plan, Exceptions are as noted - HPI HPI: 05/05/20 01:38 The patient is a 29 year old female with past medical history significant for COPD and asthma who presents to the emergency department with a sharp, left sided chest pain, associated with left upper extremity numbness and headache. Denies dizziness or shortness of breath. - Physicial Exam PE: 05/11/20 20:08 Agree with documented exam - Medical Decision Making 05/11/20 20:08 29F c/o cp, eval for ACS in context of low risk pt f/u labs, cxr, ekg re-eval work up neg for acute pathology dc home with pcp f/u Discharge - Discharge Information Problems reviewed: Yes Clinical Impression/Diagnosis: Anxiety, Chest pain due to psychological stress Condition: Stable Disposition: HOME - Follow up/Referral Referrals: [facility] [place] [facility] [place] [Provider Group] Eliel Quinn MD [Staff Physician] - - Patient Discharge Instructions Patient Printed Discharge Instructions: DI for Chest Pain Additional Instructions: Please make a follow up appointment with a primary care doctor (referral provided here) to discuss strategies for managing anxiety. Please make a follow up appt with your operator lights (Dr. Quinn). If you experience any new, worsening, or concerning symptoms, including worsening chest pain, shortness of breath, headache, or any other concerns, please return to the emergency department. - Post Discharge Activity Work/Back to School Note: Back to Work
[2020-05-05 01:43] VITALS: TEMP 97.8; BMI 40.7
[2020-05-05 02:01] LABS: BASO % 0.6 % (0-2.0); EOS % 1.4 % (0-4.5); HEMATOCRIT 42.1 % (32.4-45.2); HEMOGLOBIN 14.4 GM/dL (10.7-15.3); LYMPH % 26.6 % (8-40); MCH 28.5 pg (25.7-33.7); MCHC 34.2 g/dl (32.0-36.0); MEAN CELL VOLUME 83.3 fl (80-96); MEAN PLT VOLUME 8.5 fl (7.5-11.1); MONO % 6.8 % (3.8-10.2); NEUT % 64.6 % (42.8-82.8); PLATELET COUNT 289 K/MM3 (134-434); RBC 5.06 M/mm3 (3.60-5.2); RDW 13.8 % (11.6-15.6); WHITE BLOOD COUNT 12.7 K/mm3 (4.0-10.0)
[2020-05-05] MEDS ORDERED: ALPRAZolam 0.25 MG TABLET PO ONE (02:05)
[2020-05-05 02:18] LABS: INR 1.06 (0.83-1.09); PROTHROMBIN TIME (PATIENT) 12.5 SEC (9.7-13.0)
[2020-05-05 02:20] LABS: ACTIVATED PTT 27.7 SECONDS (25.2-36.5)
[2020-05-05] MEDS ORDERED: ACETAMINOPHEN 1000 MG/100 ML VIAL (NON FORMULARY) IVPB ONE (02:25)
[2020-05-05 02:36] LABS: ALBUMIN 3.8 g/dl (3.4-5.0); ALK PHOS 94 U/L (45-117); BILIRUBIN,TOTAL 0.5 mg/dL (0.2-1); BLOOD UREA NITROGEN 9.2 mg/dL (7-18); CO2 26 mmol/L (21-32); CREATININE 0.8 mg/dL (0.55-1.3); POTASSIUM 3.7 mmol/L (3.5-5.1); SGOT/AST 19 U/L (15-37); SGPT/ALT 32 U/L (13-61); SODIUM 140 mmol/L (136-145); TOT PROT 7.8 g/dl (6.4-8.2)
[2020-05-05] MEDS ORDERED: ALPRAZolam 0.25 MG TABLET ONE (02:44)
[2020-05-05 03:00] LABS: ANION GAP 9 MMOL/L (8-16); CHLORIDE 105 mmol/L (98-107); GLUCOSE,RANDOM 98 mg/dL (74-106)
[2020-05-05] MEDS ORDERED: ACETAMINOPHEN INJECTION 100 ML IVPB ONE (03:19)
[2020-05-05 03:47] VITALS: BP 119/84; PULSE 80
--- NOTE | 2020-05-05 10:40 | EKG ---
Test Reason : Blood Pressure : / mmHG Vent. Rate : 070 BPM Atrial Rate : 070 BPM P-R Int : 142 ms QRS Dur : 082 ms QT Int : 380 ms P-R-T Axes : 017 007 025 degrees QTc Int : 410 ms NORMAL SINUS RHYTHM NORMAL ECG WHEN COMPARED WITH ECG OF 09-JAN-2019 20:53, QT HAS SHORTENED Confirmed by NELI TRONCOSO MD ([id number]) on 05/05/2020 10:39:53 AM Referred By: Confirmed By:NELI TRONCOSO MD
== END 2020-05-05 03:56 | disposition home or self-care (01) ==
LOC: JER 01:02
PROC: 3E033GC Introduction of Other Therapeutic Substance into Peripheral Vein, Percutaneous Approach (ICD-10-PCS; principal; 2020-05-05)
DX: R07.89 Other chest pain (principal); F41.9 Anxiety disorder, unspecified
CPT/HCPCS: 36415; 71045-TC-FY; 80053; 82550; 84484; 85025; 85610; 85730; 93005; 93010; 99285-25; J0131